=== PATIENT | male | born 1975 | race Two or more races ===

== ENCOUNTER 2024-12-25 10:10 | Emergency (ER) | payer OTHER ==
[~2024-12-25] VITALS: Ht 165.1 cm; Wt 77.1 kg
[2024-12-25] MEDS ORDERED: LISI20TA30 PO (10:57)
[2024-12-25] MEDS ORDERED: SWABABLE VALVE TRANSFER SET EA MC ONE (11:04)
[2024-12-25] MEDS ORDERED: IV NORMAL SALINE 250 ML IV ONE (11:04)
[2024-12-25] MEDS ORDERED: IOHEXOL 300MG/ML 100 ML INFUS..BTL ONE (11:04)
[2024-12-25 11:05] LABS: *BILIRUBIN,URIN NEGATIVE (NEGATIVE); *BLOOD, URINE NEGATIVE (NEGATIVE); *CLARITY,URINE CLEAR (CLEAR); *COLOR,URINE YELLOW (YELLOW); *KETONES,URINE NEGATIVE (NEGATIVE); *PROTEIN,URINE NEGATIVE (NEGATIVE); *UROBILINOGEN,URINE 0.2 E.U./dl (NORMAL); LEUKOCYTE ESTERASE ,URINE NEGATIVE (NEGATIVE); NITRITE, URINE NEGATIVE (NEGATIVE); PH,URINE 6.5 (5.0-8.0); UGLUCOSE NEGATIVE (NEGATIVE)
[2024-12-25 11:06] LABS: BASOPHILS % (AUTO) 0.3 % (0.0-2.0); EOSINOPHILS # (AUTO) 0.1 K/uL (0.0-0.7); EOSINOPHILS % (AUTO) 1.4 % (0.0-7.0); HEMATOCRIT 40.2 % (36.7-47.1); HEMOGLOBIN 14.1 g/dL (12.5-16.3); LYMPHOCYTES # (AUTO) 1.3 K/uL (0.8-4.8); LYMPHOCYTES % (AUTO) 22.6 % (20.5-51.5); MEAN CORPUSCULAR HEMOGLOBIN 30.4 uug (23.8-33.4); MEAN CORPUSCULAR HGB CONC 35 g/dL (32.5-36.3); MEAN CORPUSCULAR VOLUME 86.8 fL (73.0-96.2); MONOCYTES # (AUTO) 0.5 K/uL (0.1-1.30); MONOCYTES % (AUTO) 9.1 % (0.0-11.0); NEUTROPHILS # (AUTO) 3.7 K/uL (1.8-8.9); NEUTROPHILS % (AUTO) 66.6 % (38.5-71.5); PLATELET COUNT (AUTO) 203 K/uL (152-348); RED BLOOD CELL COUNT(AUTO) 4.63 MIL/uL (4.06-5.63); RED CELL DISTRIBUTION WIDTH 13.1 % (12.1-16.2); WHITE BLOOD COUNT (AUTO) 5.6 K/uL (3.6-10.2)
[2024-12-25 11:07] LABS: DIFFERENTIAL COMMENT 1
[2024-12-25 11:13] LABS: CALCIUM 8.7 mg/dL (8.5-10.1); CARBON DIOXIDE 26 mmol/L (21-32); CHLORIDE 106 mmol/L (98-107); CREATININE 0.8 mg/dL (0.6-1.3); GLUCOSE 102 mg/dL (74-106); POTASSIUM 3.8 mmol/L (3.5-5.1); SODIUM SERUM 142 mmol/L (136-145); UREA NITROGEN, BLOOD 12 mg/dL (7-18)
[2024-12-25 11:19] LABS: ALANINE AMINOTRANSFERASE 37 U/L (16-63); ALBUMIN 3.9 g/dL (3.4-5.0); ALKALINE PHOSPHATASE 114 U/L (50-136); ASPARTATE AMINOTRANSFERASE 26 U/L (15-37); BILIRUBIN,DIRECT 0.2 mg/dL (0.0-0.2); BILIRUBIN,TOTAL 1.1 mg/dL (0.2-1.0); LIPASE 31 U/L (16-77); TOTAL PROTEIN, SERUM 7.2 g/dL (6.4-8.2)
[2024-12-25] MEDS ORDERED: DOXY100C5 PO (13:45)
[2024-12-25] MEDS ORDERED: IBUP-1957 PO (13:45)
[2024-12-25 14:18] VITALS: BP 151/95; O2SAT 98
== END 2024-12-25 14:19 | disposition home or self-care (01) ==
LOC: ER 10:10
DX: N41.0 Acute prostatitis (principal); I10 Essential (primary) hypertension; Z79.899 Other long term (current) drug therapy; R10.31 Right lower quadrant pain
CPT/HCPCS: 99285; 74177; 71045; 80076; 80048; 81003; 83690; 85025; 85651; 85730; 87086; 84484; 36415; 93005; Q9967; A4606; A4663

== ENCOUNTER 2025-07-17 20:55 | Emergency (ER) | payer OTHER ==
[~2025-07-17] VITALS: Ht 172.7 cm; Wt 73.9 kg
[~2025-07-17 20:55] MED LIST: DOXY100C5 PO; IBUP-1957 PO; LISI20TA30 PO
[2025-07-17 21:30] VITALS: BP 146/100
[2025-07-17] MEDS ORDERED: KETOROLAC TROMETHAMINE 30 MG INJ ONE (22:41)
[2025-07-17] MEDS: KETOROLAC TROMETHAMINE 30 MG INJ IM ONE (22:48)
[2025-07-17 23:37] LABS: *BILIRUBIN,URIN NEGATIVE (NEGATIVE); *BLOOD, URINE NEGATIVE (NEGATIVE); *COLOR,URINE YELLOW (YELLOW); *KETONES,URINE 1+ (NEGATIVE); *PROTEIN,URINE 1+ (NEGATIVE); *UROBILINOGEN,URINE 0.2 E.U./dl (NORMAL); LEUKOCYTE ESTERASE ,URINE NEGATIVE (NEGATIVE); NITRITE, URINE NEGATIVE (NEGATIVE); UGLUCOSE NEGATIVE (NEGATIVE)
[2025-07-17 23:38] LABS: *CLARITY,URINE HAZY (CLEAR)
[2025-07-17] MEDS ORDERED: GABA-532 PO (23:45)
[2025-07-17 23:48] LABS: *AMPHETAMINE, URINE NEGATIVE (NEGATIVE); *BARBITURATE, URINE NEGATIVE (NEGATIVE); *BENZODIAZEPINE, URINE NEGATIVE (NEGATIVE); *CANNABINOID, URINE NEGATIVE (NEGATIVE); *COCCAINE, URINE NEGATIVE (NEGATIVE); *OPIATE, URINE NEGATIVE (NEGATIVE); *PHENCYCLIDINE SCREEN,URINE NEGATIVE (NEGATIVE); FENTANYL, URINE NEGATIVE (NEGATIVE)
[2025-07-17 23:58] LABS: SQUAMOUS EPITHELIAL CELL,UR FEW /HPF (NONE SEEN)
[2025-07-17 23:59] LABS: URINE AMORPHOUS URATE FEW /HPF
[2025-07-18 00:27] VITALS: BP 139/92; O2SAT 97
== END 2025-07-18 00:06 | disposition home or self-care (01) ==
LOC: ER 20:55
DX: M54.9 Dorsalgia, unspecified (principal); Z79.899 Other long term (current) drug therapy
CPT/HCPCS: 99285; 72131; 96372; 80307; 81001; J1885; A4606; A4663

== ENCOUNTER 2025-08-18 13:01 | Emergency (ER) | payer OTHER ==
[~2025-08-18] VITALS: Ht 165.1 cm; Wt 70.3 kg
[~2025-08-18 13:01] MED LIST changes: +GABA-532 PO
[2025-08-18 13:08] VITALS: BP 140/88
[2025-08-18] MEDS ORDERED: KETOROLAC TROMETHAMINE 30 MG INJ ONE (14:33)
[2025-08-18] MEDS: KETOROLAC TROMETHAMINE 30 MG INJ IM ONE (14:33)
[2025-08-18 14:40] LABS: PLATELET COUNT (AUTO) 216 K/uL (152-348); RED BLOOD CELL COUNT(AUTO) 4.87 MIL/uL (4.06-5.63); RED CELL DISTRIBUTION WIDTH 13.2 % (12.1-16.2); WHITE BLOOD COUNT (AUTO) 7.2 K/uL (3.6-10.2)
[2025-08-18 15:12] LABS: CREATININE 0.8 mg/dL (0.6-1.3); SODIUM SERUM 142.0 mmol/L (136-145); UREA NITROGEN, BLOOD 19.0 mg/dL (7-18)
[2025-08-18 15:24] LABS: ASPARTATE AMINOTRANSFERASE 20.0 U/L (15-37); TOTAL PROTEIN, SERUM 7.5 g/dL (6.4-8.2)
[2025-08-18] MEDS ORDERED: HYDR-3980 PO (16:35)
[2025-08-18] MEDS ORDERED: PRED20TA PO (16:35)
[2025-08-18] MEDS ORDERED: KETO10TA2 PO (16:35)
[2025-08-18 16:49] VITALS: BP 136/91; O2SAT 98
== END 2025-08-18 16:49 | disposition home or self-care (01) ==
LOC: ER 13:01
DX: M54.41 Lumbago with sciatica, right side (principal); Z79.899 Other long term (current) drug therapy
CPT/HCPCS: 99283; 80076; 80048; 83036; 85025; 36415; 96372; J1885; A4606; A4663